=== PATIENT | male | born 1940 | race Two or more races ===

== ENCOUNTER → 2020-04-22 | Outpatient (CLI) | payer MEDICARE ==
[~2020-04-22] MED LIST: ACET-1600 PO; ALLO300T PO; DEXA4TAB PO; DOCU-131 PO; FERR55TA PO; HYDR-3342 PO; OMEP-110 PO
== END | disposition home or self-care (01) ==
LOC: PETCFH 09:08
PROVIDERS: ATTEND Nurse Practitioner Family
DX: C90.01 Multiple myeloma in remission (principal); M47.816 Spondylosis without myelopathy or radiculopathy, lumbar region; M89.58 Osteolysis, other site; M89.9 Disorder of bone, unspecified; R93.89 Abnormal findings on diagnostic imaging of other specified body structures
CPT/HCPCS: 78815; A9552

== ENCOUNTER 2020-05-06 06:08 | Day surgery (SDC) | payer MEDICARE ==
[~2020-05-06] VITALS: Ht 157.5 cm; Wt 63.4 kg
[2020-05-06 06:57] VITALS: BP 133/71
[2020-05-06] MEDS ORDERED: SODIUM CHLORIDE 0.9% 1,000 ML IV SCH (07:00)
[2020-05-06] MEDS ORDERED: SODI650T PO (07:07)
[2020-05-06] MEDS ORDERED: VITAMIN D PO (07:07)
[2020-05-06] MEDS ORDERED: CALCITROL PO (07:07)
[2020-05-06] MEDS ORDERED: DOXA1TAB2 PO (07:07)
[2020-05-06] MEDS ORDERED: CARV-39 PO (07:07)
[2020-05-06] MEDS ORDERED: FURO20TA3 PO (07:07)
[2020-05-06] MEDS ORDERED: MULT-658 PO (07:07)
[2020-05-06] MEDS ORDERED: LIDOCAINE 1%, 10ML ONE (08:20)
[2020-05-06] MEDS ORDERED: FLUMAZENIL 0.1 MG/1 ML, 5ML ONE (08:38)
[2020-05-06] MEDS ORDERED: MIDAZOLAM 1 MG/ML, 5ML ONE (08:38)
[2020-05-06] MEDS ORDERED: NALOXONE 1 MG/ML, 2ML ONE (08:38)
[2020-05-06] MEDS ORDERED: FENTANYL PF 100 MCG/2ML ONE (08:38)
== END 2020-05-06 10:00 | disposition home or self-care (01) ==
LOC: OUT 06:08
PROVIDERS: ATTEND Internal Medicine Hematology & Oncology
DX: C90.00 Multiple myeloma not having achieved remission (principal); C41.2 Malignant neoplasm of vertebral column; N18.30 Chronic kidney disease, stage 3 unspecified; D63.1 Anemia in chronic kidney disease; M06.9 Rheumatoid arthritis, unspecified; Z79.899 Other long term (current) drug therapy; Z98.890 Other specified postprocedural states
CPT/HCPCS: 20225; 77002; 88307; 88311; 88341; 88342; 99156; 99157; J2250; J3010; J7030; J2310

== ENCOUNTER → 2020-06-11 | Outpatient (CLI) | payer MEDICARE ==
[~2020-06-11] MED LIST changes: +CALCITROL PO; +CARV-39 PO; +DOXA1TAB2 PO; +FURO20TA3 PO; +MULT-658 PO; +SODI650T PO; +VITAMIN D PO
== END | disposition home or self-care (01) ==
LOC: CFH 09:10
PROVIDERS: ATTEND Nurse Practitioner Family
DX: C90.01 Multiple myeloma in remission (principal); C90.00 Multiple myeloma not having achieved remission; C61 Malignant neoplasm of prostate; D64.9 Anemia, unspecified; M81.0 Age-related osteoporosis without current pathological fracture
CPT/HCPCS: 77080

== ENCOUNTER 2020-07-10 15:47 | Outpatient (CLI) | payer MEDICARE ==
[~2020-07-10 15:47] MED LIST changes: +AMLO-211 PO; +BICA50TA48 PO; +DOXY100T PO
== END 2020-07-10 23:59 | disposition home or self-care (01) ==
LOC: CFH 15:47
PROVIDERS: ATTEND Nurse Practitioner Family
DX: C90.01 Multiple myeloma in remission (principal); C61 Malignant neoplasm of prostate; I08.8 Other rheumatic multiple valve diseases; C90.00 Multiple myeloma not having achieved remission; D64.9 Anemia, unspecified
CPT/HCPCS: 93306

== ENCOUNTER → 2020-07-20 | Outpatient (CLI) | payer MEDICARE ==
[~2020-07-20] MED LIST changes: +GADOTERATE 7.5 MMOL/15 ML VIAL ONE
== END | disposition home or self-care (01) ==
LOC: RAD 16:16
PROVIDERS: ATTEND Internal Medicine Hematology & Oncology
DX: C79.51 Secondary malignant neoplasm of bone (principal); C90.00 Multiple myeloma not having achieved remission; C90.01 Multiple myeloma in remission; D64.9 Anemia, unspecified; M48.54XA Collapsed vertebra, not elsewhere classified, thoracic region, initial encounter for fracture; M47.813 Spondylosis without myelopathy or radiculopathy, cervicothoracic region
CPT/HCPCS: 72157; A9575